=== PATIENT | female | born 1970 | race American Indian/Alaskan Native ===

== ENCOUNTER 2018-08-04 09:51 | Emergency (ER) | payer MEDICAID, OTHER ==
[2018-08-04 09:51] VITALS: BMI 47.6
[2018-08-04] MEDS ORDERED: Albuterol-Ipratrop 3 mg / 0.5 (3 ml) UD IH STA (10:39)
[2018-08-04] MEDS ORDERED: Albuterol 0.083% Inhal Sol (2.5 mg/3 mL) UD INH STA (10:39)
[2018-08-04 10:46] VITALS: TEMP 98.1
[2018-08-04 11:13] LABS: BASO # 0.1 K/uL (0.0-0.2); BASO % 1.2 % (0.0-2.0); EOS # 0.1 K/uL (0.0-0.7); EOS % 2.6 % (0.0-4.0); HEMOGLOBIN 11.6 g/dL (11.0-16.0); LYMPH # 1.1 K/uL (1.0-4.3); LYMPH % 22.6 % (20.0-40.0); MEAN CORPUSCULAR HEMOGLOBIN 25.9 pg (27.0-31.0); MEAN CORPUSCULAR HGB CONC 30.8 g/dL (33.0-37.0); MEAN PLATELET VOLUME 8.3 fL (7.2-11.7); MONO # 0.4 K/uL (0.0-0.8); MONO % 8.9 % (0.0-10.0); NEUT # 3.2 K/uL (1.8-7.0); NEUT % 64.7 % (50.0-75.0); NRBC % 0.1 % (0.0-2.0); RBC 4.49 Mil/uL (3.80-5.20); RED CELL DISTRIBUTION WIDTH 19.2 % (11.5-14.5); WHITE BLOOD COUNT 4.9 K/uL (4.8-10.8)
[2018-08-04 11:23] LABS: ALB/GLOB RATIO 1.2 (1.0-2.1); ALBUMIN 3.3 g/dL (3.5-5.0); ALT/SGPT 24 U/L (9-52); AST/SGOT 22 U/L (14-36); BLOOD UREA NITROGEN 4 mg/dL (7-17); CALCIUM 8.1 mg/dl (8.6-10.4); GFR NON-AFRICAN AMERICAN 59; LIPASE 22 U/L (23-300)
--- NOTE | 2018-08-04 11:32 | RAD ---
Date of service: 08/04/2018 PROCEDURE: CHEST RADIOGRAPH, 1 VIEW HISTORY: SOB COMPARISON: None available. FINDINGS: LUNGS: Clear. PLEURA: No pneumothorax or pleural fluid seen. CARDIOVASCULAR: No aortic atherosclerotic calcification present. Mitral valve replacement. Sternotomy wires. No congestive change. Normal heart size. OSSEOUS STRUCTURES: No significant abnormalities. VISUALIZED UPPER ABDOMEN: Normal. OTHER FINDINGS: None. IMPRESSION: No active disease.
[2018-08-04 11:33] LABS: B-TYPE NATRIURETIC PEPTIDE 7700 pg/mL (0-450); PROTHROMBIN TIME 33.2 SECONDS (9.7-12.2)
--- NOTE | 2018-08-04 11:47 | C.PDOC ---
History Of Present Illness 48 year old female presents to ED requesting detox from [facility]. Patient was admitted months to hospital and given dilaudid. Patient was discharged and states that she is in withdrawal. Patient is also complaining of SOB. Patient has a history of COPD and asthma and has O2 tank at home that she uses, but is currently empty. Patient's blood pressure is currently elevated. She denies chest pain. Time Seen by Provider: 08/04/18 10:15 Chief Complaint (Nursing): Substance Abuse History Per: Patient History/Exam Limitations: no limitations Onset/Duration Of Symptoms: Hrs Current Symptoms Are (Timing): Still Present Modifying Factor(s): Narcotics Associated Symptoms: denies: Suicidal Thoughts, Suicidal Plan, Other (chest pain) Past Medical History Reviewed: Historical Data, Nursing Documentation, Vital Signs Vital Signs: Last Vital Signs Temp 98.1 F 08/04/18 10:13 Pulse 97 H 08/04/18 11:31 Resp 28 H 08/04/18 11:31 BP 135/95 H 08/04/18 11:31 Pulse Ox 97 08/04/18 11:31 - Medical History PMH: Asthma, COPD, HTN, Hypercholesterolemia Surgical History: No Surg Hx - [facility] Procedures DX ULTRASOUND-HEART (07/22/13) Family History: States: Unknown Family Hx - Social History Hx Alcohol Use: No Hx Substance Use: Yes - Immunization History Hx Tetanus Toxoid Vaccination: No Hx Influenza Vaccination: No Hx Pneumococcal Vaccination: No Review Of Systems Constitutional: Negative for: Fever, Chills, Weakness Cardiovascular: Negative for: Chest Pain, Palpitations Respiratory: Positive for: Shortness of Breath Gastrointestinal: Negative for: Nausea, Vomiting, Abdominal Pain Neurological: Negative for: Weakness, Numbness, Dizziness Psych: Positive for: Withdrawal. Negative for: Suicidal ideation Physical Exam - Physical Exam Appears: No Acute Distress Skin: Normal Color, Warm, Dry Head: Atraumatic, Normacephalic Neck: Normal ROM, Supple Chest: Symmetrical, No Deformity Cardiovascular: Rhythm Regular, No Murmur Respiratory: Wheezing, Other (Tachypneic ) Gastrointestinal/Abdominal: Tenderness (diffuse) Extremity: Capillary Refill (<2 seconds), Other (pitting edema bilaterally) Pulses: Left Radial: Normal, Right Radial: Normal Neurological/Psych: Oriented x3, Normal Speech, Normal Cognition ED Course And Treatment - Laboratory Results Result Diagrams: 08/04/18 11:01 08/04/18 11:01 Lab Results: PT 33.2 SECONDS (9.7-12.2) H 08/04/18 11:01 INR 3.0 08/04/18 11:01 APTT 37 SECONDS (21-34) H 08/04/18 11:01 D-Dimer, Quantitative 559 ng/mlDDU (0-243) H 08/04/18 11:01 Troponin I 0.0320 ng/mL (0.00-0.120) 08/04/18 11:01 NT-Pro-B Natriuret Pep 7700 pg/mL (0-450) H 08/04/18 11:01 Total Bilirubin 0.6 mg/dL (0.2-1.3) 08/04/18 11:01 AST 22 U/L (14-36) 08/04/18 11:01 ALT 24 U/L (9-52) 08/04/18 11:01 Alkaline Phosphatase 63 U/L (38-126) 08/04/18 11:01 Total Protein 5.9 g/dL (6.3-8.3) L 08/04/18 11:01 Albumin 3.3 g/dL (3.5-5.0) L 08/04/18 11:01 Globulin 2.7 gm/dL (2.2-3.9) 08/04/18 11:01 Albumin/Globulin Ratio 1.2 (1.0-2.1) 08/04/18 11:01 Lipase 22 U/L (23-300) L 08/04/18 11:01 O2 Sat by Pulse Oximetry: 97 (RA) - Other Rad CXR X-Ray: Interpreted by Me, Viewed By Me Interpretation: Accession No. : [id number]. Patient Name / ID : ARIELLE PATTERSON / [id number]. Exam Date : 08/04/2018 10:43:03 ( Approved ). Study Comment : Sex / Age : F / 48Y. Creator : Hao Carty MD. Dictator : Hao Carty MD. Census Taker : Airworthiness Inspector : Hao Carty MD. Approver2 : Report Date : 08/04/2018 11:28:47. My Comment : . Date of service: 08/04/2018. PROCEDURE: CHEST RADIOGRAPH, 1 VIEW. HISTORY: SOB. COMPARISON: None available. FINDINGS: LUNGS: Clear. PLEURA: No pneumothorax or pleural fluid seen. CARDIOVASCULAR: No aortic atherosclerotic calcification present. Mitral valve replacement. Sternotomy wires. No congestive change. Normal hea rt size. OSSEOUS STRUCTURES: No significant abnormalities. VISUALIZED UPPER ABDOMEN: Normal. OTHER FINDINGS: None. IMPRESSION: No active disease. - CT Scan/US CT abdomen/pelvis Other Rad Studies (CT/US): Read By Radiologist, Radiology Report Reviewed CT/US Interpretation: Accession No. : [id number]. Patient Name / ID : ARIELLE Louis / [id number]. Exam Date : 08/04/2018 16:26:17 ( Approved ). Study Comment : Sex / Age : F / 48Y. Creator : Landry Chappell. Dictator : Hao Carty MD. Census Taker : Airworthiness Inspector : Hao Carty MD. Approver2 : Report Date : 08/04/2018 16:35:38. My Comment : . Date of service: 08/04/2018. PROCEDURE: CT Abdomen and Pelvis with contrast. HISTORY: abdominal pain. COMPARISON: Not available. TECHNIQUE: Contrast dose: 100 mL Visipaque 320. Radiation dose: Total exam DLP = 1154.27 mGy-cm. This CT exam was performed using one or more of the following dose reduction techniques: Automated exposure control, adjustment of the mA and/or kV according to patient size, and/or use of iterative reconstruction technique. FINDINGS: LOWER THORAX: No infiltrate/effusion. Mitral valve replacement. LIVER: Unremarkable. No gross lesion or ductal dilatation. GALLBLADDER AND BILE DUCTS: Unremarkable. PANCREAS: Unremarkable. No gross lesion or ductal dilatation. SPLEEN: Unremarkable. ADRENALS: Unremarkable. No mass. KIDNEYS AND URETERS: Unremarkable. No hydronephrosis. No solid mass. VASCULATURE: Unremarkable. No aortic aneurysm. No aortic atherosclerotic calcification or mural plaque present. BOWEL: Unremarkable. No obstruction. No gross mural thickening. APPENDIX: Not identified. No secondary findings to suggest acute appendicitis. PERITONEUM: Unremarkable. No free fluid. No free air. LYMPH NODES: Unremarkable. No enlarged lymph nodes. BLADDER: Unremarkable. REPRODUCTIVE: Normal uterus. Left adnexal cyst, 6.1 cm diameter. Recommend correlation with pelvic ultrasound examination. BONES: No acute fracture. OTHER FINDINGS: None. IMPRESSION: 6.1 cm left adnexal cyst. Recommend correlation with pelvic ultrasound examination. Evidence of prior mitral valve replacement. Otherwise unremarkable examination. CTA chest Other Rad Studies (CT/US): Read By Radiologist, Radiology Report Reviewed CT/US Interpretation: Accession No. : [id number]. Patient Name / ID : ARIELLE Louis / [id number]. Exam Date : 08/04/2018 16:22:17 ( Approved ). Study Comment : Sex / Age : F / 48Y. Creator : Landry Chappell. Dictator : Hao Carty MD. Census Taker : Airworthiness Inspector : Hao Carty MD. Approver2 : Report Date : 08/04/2018 16:33:54. My Comment : . Date of service: 08/04/2018. PROCEDURE: CT Chest with contrast (Pulmonary Angiogram). HISTORY: SOB, elevated DDimer. COMPARISON: None available. TECHNIQUE: Axial computed tomography images were obtained of the chest in the pulmonary arterial phase of enhancement. Coronal and sagittal reformatted images were created and reviewed. Intravenous contrast dose: 100 mL Visipaque 320. Radiation dose: Total exam DLP = 632.6 mGy-cm. This CT exam was performed using one or more of the following dose reduction techniques: Automated exposure control, adjustment of the mA and/or kV according to patient size, and/or use of iterative reconstruction technique. FINDINGS: PULMONARY ARTERIES: Unremarkable. No pulmonary embolism. AORTA: No acute findings. No thoracic aortic aneurysm. No aortic atherosclerotic calcification or mural plaque present. LUNGS: Unremarkable. No nodule, mass or pulmonary consolidation. PLEURAL SPACES: Unremarkable. No effusion or pneumothorax. HEART: Normal heart size. Status post mitral valve replacement. No congestive change. LYMPH NODES: No lymphadenopathy. BONES, CHEST WALL: Unremarkable. No fracture or destructive lesion. OTHER FINDINGS: Unremarkable. IMPRESSION: No evidence of pulmonary embolism. Evidence of prior mitral valve replacement. Otherwise unremarkable examination. Progress Note: EKG and CXR ordered for patient. Labs ordered with UA and flu a/b. Patient given Albuteral INH x2 and Solu-medrol IVP. Patient feels better after treatment. case was d/w patient's PMD who requested to be d/c home with him and OBGYN follow up. Disposition - Disposition Referrals: Stefan Wright MD [Staff Provider] - Disposition: HOME/ ROUTINE Disposition Time: 17:17 Condition: IMPROVED Additional Instructions: Follow up with your PMD and OBGYN within 2-3 days. Return to ED immediately if feel worse. Instructions: Asthma, Adult (DC), Ovarian Cyst (DC) Forms: [facility] (Yoruba) - Clinical Impression Clinical Impression: Asthma exacerbation, Ovarian cyst - PA / PHARMACY DATA ANALYST / Resident Statement MD/DO has reviewed & agrees with the documentation as recorded. (Sherlyn Fountain) - Scribe Statement The provider has reviewed the documentation as recorded by the Scribe (Sherlyn Fountain) All medical record entries made by the Scribe were at my direction and personally dictated by me. I have reviewed the chart and agree that the record accurately reflects my personal performance of the history, physical exam, medical decision making, and the department course for this patient. I have also personally directed, reviewed, and agree with the discharge instructions and disposition.
[2018-08-04 12:44] LABS: HCG,QUALITATIVE URINE NEGATIVE (NEGATIVE)
[2018-08-04 12:48] LABS: SQUAMOUS EPITHIAL 13 /hpf (0-5); URINE BACTERIA RARE (<OCC); URINE BILIRUBIN NEGATIVE (NEGATIVE); URINE BLOOD NEGATIVE (NEGATIVE); URINE CLARITY Hazy (Clear); URINE COLOR Yellow (YELLOW); URINE GLUCOSE (UA) NORMAL (Normal); URINE LEUKOCYTE ESTERASE NEG Leu/uL (Negative); URINE PROTEIN 2+ mg/dL (NEGATIVE); URINE UROBILINOGEN NORMAL mg/dL (0.2-1.0)
[2018-08-04] MEDS ORDERED: Morphine 4 MG/ML VIAL ONE (13:08)
[2018-08-04 13:17] LABS: BARBITURATES, UR NEGATIVE (NEGATIVE); BENZODIAZEPINES, UR NEGATIVE (NEGATIVE); OPIATES, UR NEGATIVE (NEGATIVE); PHENCYCLIDINE, UR NEGATIVE (NEGATIVE)
[2018-08-04] MEDS ORDERED: Albuterol 0.083% Inhal Sol (2.5 mg/3 mL) UD ONE (13:40)
[2018-08-04] MEDS ORDERED: Iodixanol 320 MG/ML 100 ML BOTTLE IV ONE (16:01)
--- NOTE | 2018-08-04 16:54 | CT ---
Date of service: 08/04/2018 PROCEDURE: CT Chest with contrast (Pulmonary Angiogram) HISTORY: SOB, elevated DDimer COMPARISON: None available. TECHNIQUE: Axial computed tomography images were obtained of the chest in the pulmonary arterial phase of enhancement. Coronal and sagittal reformatted images were created and reviewed. Intravenous contrast dose: 100 mL Visipaque 320 Radiation dose: Total exam DLP = 632.6 mGy-cm. This CT exam was performed using one or more of the following dose reduction techniques: Automated exposure control, adjustment of the mA and/or kV according to patient size, and/or use of iterative reconstruction technique. FINDINGS: PULMONARY ARTERIES: Unremarkable. No pulmonary embolism. AORTA: No acute findings. No thoracic aortic aneurysm. No aortic atherosclerotic calcification or mural plaque present. LUNGS: Unremarkable. No nodule, mass or pulmonary consolidation. PLEURAL SPACES: Unremarkable. No effusion or pneumothorax. HEART: Normal heart size. Status post mitral valve replacement. No congestive change. LYMPH NODES: No lymphadenopathy. BONES, CHEST WALL: Unremarkable. No fracture or destructive lesion OTHER FINDINGS: Unremarkable. IMPRESSION: No evidence of pulmonary embolism. Evidence of prior mitral valve replacement. Otherwise unremarkable examination.
[2018-08-04 16:59] VITALS: BP 141/89; PULSE 103; RESP 20
--- NOTE | 2018-08-04 17:00 | CT ---
Date of service: 08/04/2018 PROCEDURE: CT Abdomen and Pelvis with contrast HISTORY: abdominal pain COMPARISON: Not available TECHNIQUE: Contrast dose: 100 mL Visipaque 320 Radiation dose: Total exam DLP = 1154.27 mGy-cm. This CT exam was performed using one or more of the following dose reduction techniques: Automated exposure control, adjustment of the mA and/or kV according to patient size, and/or use of iterative reconstruction technique. FINDINGS: LOWER THORAX: No infiltrate/effusion. Mitral valve replacement. LIVER: Unremarkable. No gross lesion or ductal dilatation. GALLBLADDER AND BILE DUCTS: Unremarkable. PANCREAS: Unremarkable. No gross lesion or ductal dilatation. SPLEEN: Unremarkable. ADRENALS: Unremarkable. No mass. KIDNEYS AND URETERS: Unremarkable. No hydronephrosis. No solid mass. VASCULATURE: Unremarkable. No aortic aneurysm. No aortic atherosclerotic calcification or mural plaque present. BOWEL: Unremarkable. No obstruction. No gross mural thickening. APPENDIX: Not identified. No secondary findings to suggest acute appendicitis. PERITONEUM: Unremarkable. No free fluid. No free air. LYMPH NODES: Unremarkable. No enlarged lymph nodes. BLADDER: Unremarkable. REPRODUCTIVE: Normal uterus. Left adnexal cyst, 6.1 cm diameter. Recommend correlation with pelvic ultrasound examination. BONES: No acute fracture. OTHER FINDINGS: None. IMPRESSION: 6.1 cm left adnexal cyst. Recommend correlation with pelvic ultrasound examination. Evidence of prior mitral valve replacement. Otherwise unremarkable examination.
[2018-08-04 17:18] VITALS: O2SAT 97
--- NOTE | 2018-08-05 11:31 | CARD ---
APPROVED REPORT Date of service: 08/04/2018 EKG Measurement Heart [id number] XTc881 <Conclusion> Sinus rhythm with premature atrial complexes Prolonged QT Abnormal ECG
== END 2018-08-04 18:04 | disposition home or self-care (01) ==
LOC: C.ER 09:51
DX: J45.901 Unspecified asthma with (acute) exacerbation (principal); N83.209 Unspecified ovarian cyst, unspecified side
CPT/HCPCS: 71045; 71275; 74177; 80053; 80324; 80345; 80346; 80349; 80353; 80358; 80361; 81001; 83690; 83735; 83880; 83992; 84443; 84484; 84703; 85025; 85378; 85610; 85730; 87804; 93005; 96374; 96375; 99285; J2270; J2930; Q9967